=== PATIENT | female | born 1980 | race Caucasian/White ===

== ENCOUNTER 2021-02-04 15:54 | Emergency (ER) | payer OTHER ==
[~2021-02-04 15:54] MED LIST: OMEPRAZOLE20 MG PO
[2021-02-04 19:50] LABS: HEMOGLOBIN 16.9 gm/dl (12.3-15.3); RED BLOOD COUNT 5.02 M/UL (4.00-5.10); WHITE BLOOD COUNT 16.8 K/UL (4.5-11.0)
[2021-02-04 19:57] LABS: BUN/CREATININE RATIO 17 (0-10)
[2021-02-04] MEDS ORDERED: TORADOL 10 MG T10 MG PO (20:44)
== END 2021-02-04 20:54 | disposition home or self-care (01) ==
LOC: ER1 15:54
PROVIDERS: Preventive Medicine Occupational Medicine
DX: M70.42 Prepatellar bursitis, left knee (principal); I10 Essential (primary) hypertension; Z90.710 Acquired absence of both cervix and uterus
CPT/HCPCS: 73560; 80053; 84550; 85025; 85652; 86140; 99283; J1885; J7030

== ENCOUNTER 2021-09-21 23:20 | Emergency (ER) | payer OTHER ==
[~2021-09-21 23:20] MED LIST changes: +TORADOL 10 MG T10 MG PO
== END 2021-09-22 00:39 | disposition home or self-care (01) ==
LOC: ER1 23:20
DX: Z20.822 Contact with and (suspected) exposure to COVID-19 (principal); I10 Essential (primary) hypertension; F17.210 Nicotine dependence, cigarettes, uncomplicated
CPT/HCPCS: 99283; U0003